=== PATIENT | female | born 1960 | race Caucasian/White ===

== ENCOUNTER 2016-11-27 01:53 | Emergency (ER) | payer OTHER ==
--- NOTE | 2016-11-27 03:48 | ED CLINICAL REPORT ---
Clinical Report - Physicians/Mid Levels [facility] [address] [place] [address] 11/27/2016 1:54 Patient: YUMI FERRARI Time Seen: 02:28. Arrived- By private vehicle. Historian- patient. HISTORY OF PRESENT ILLNESS Chief Complaint: FLANK PAIN. At its maximum, severity described as 6 / 10. When seen in the E.D., severity described as 5 / 10. It is described as "pain" and it is described as located in the right flank. This started yesterday and is still present and worsening. It was gradual in onset. No nausea, vomiting or diarrhea. (feels like a full bladder. Fidgit when severe.). Similar symptoms previously: None. Recent medical care: Not recently seen/assessed. REVIEW OF SYSTEMS No constipation, black stools, fever, headache or sore throat. No chest pain or difficulty breathing. She has had difficulty with urination, and back pain. PAST HISTORY PCP: JOSE Gao Illness: HBP. Medications: Lisinopril Oral 2.5 mg, daily. PARoxetine HCl Oral (Tablet 10 mg) 1 tablet, q day. Pravastatin Sodium Oral. Allergies: Sulfa Antibiotics. SOCIAL HISTORY The patient lives with spouse. ADDITIONAL NOTES The nursing notes have been reviewed. PHYSICAL EXAM Vital Signs: 11/27/2016 04:00 BP: 118/65. HR: 59. RR: 18. O2 saturation: 100%. Pain level now: 0/10. 11/27/2016 02:06 BP: 154/88. HR: 66. RR: 20. O2 saturation: 96%. Temp: 97.7 F. Pain level now: 6/10. Appearance: Alert. Patient in moderate distress. Eyes: Eyes normal inspection. ENT: Pharynx normal. CVS: Heart sounds normal. Respiratory: No respiratory distress. Breath sounds normal. Abdomen: Soft and nontender. Back: Mild CVA tenderness on the right (to moderate). Skin: Skin warm. No rash. Extremities: Extremities exhibit normal ROM. No lower extremity edema. LABS, X-RAYS, AND EKG Abdominal CT: No acute disease. INDICATION: FLANK PAIN TECHNIQUE: Axial CT images were obtained through the abdomen and pelvis without IV contrast. Coronal and sagittal reformations were created. COMPARISON: None. FINDINGS: Mild medial right middle lobe atelectasis. Normal size heart. No hiatal hernia. Gallbladder surgically absent. Heterogeneous hypodensity throughout the liver. No discrete mass. Mildly heterogeneous right renal parenchyma suggests occult cysts. No discrete calcification. No hydronephrosis. The unenhanced appearance of the liver, adrenal glands, kidneys, pancreas and spleen is otherwise normal. The abdominal aorta is normal in its course and caliber. There are no suspicious calcifications, retroperitoneal adenopathy or masses. The stomach, upper bowel loops, and mesentery appears normal. Intact anterior abdominal wall. No free fluid, or inflammation. The unenhanced appearance of the uterus with tubal ligation clips, urinary bladder, pelvic vessels, and pelvic bowel loops is normal. The ovaries are not visible. Appendix is surgically absent. No suspicious calcifications, free fluid, or mass. Intact osseous structures. Disc degeneration at L5-S1. IMPRESSION: 1. No urinary calcification or obstructive uropathy. 2. Hepatic steatosis. 3. Cholecystectomy, appendectomy, tubal ligation. 4. Preliminary report by Dr. Mindy Salazar of [facility] radiology. The study was interpreted by the radiologist. Laboratory Tests: UA-Culture if indicated: (HUGO: 11/27/2016 02:03) ( MsgRcvd 11/27/2016 02:30) Final results Test Result Flag Units (Reference) URINE COLOR YELLOW URINE APPEARANCE CLEAR URINE GLUCOSE NEGATIVE (NEGATIVE) URINE BILIRUBIN NEGATIVE (NEGATIVE) URINE KETONE NEGATIVE (NEGATIVE) URINE SPECIFIC GRAVITY 1.025 (1.010-1.030) URINE PH 6.0 (5.0-8.0) URINE PROTEIN NEGATIVE (NEGATIVE) URINE UROBILINOGEN 0.2 EU/dL (0.2-1.0) URINE NITRITE NEGATIVE (NEGATIVE) URINE BLOOD NEGATIVE (NEGATIVE) URINE LEUK ESTERASE NEGATIVE (NEGATIVE) URINE RBC 0-1 rbc/hpf (0-1) URINE WBC 0-1 wbc/hpf (0-1) URINE EPITHELIAL CELLS 0-1 EPI/hpf (0-5) URINE BACTERIA NONE SEEN (NONE SEEN) URINE COMMENT CULT NOT INDICATED URINE CULTURES ARE SET-UP BASED ON THE FOLLOWING CRITERIA:POSITIVE NITRITEPOSITIVE LEUKOCYTE ESTERASEGREATER THAN 10 WHITE BLOOD CELLSMODERATE (2+) OR GREATER BACTERIA CBC w Diff: (HUGO: 11/27/2016 02:21) ( MsgRcvd 11/27/2016 02:42) Final results Test Result Flag Units (Reference) WHITE BLOOD COUNT 10.6 K/uL (4.5-11.5) RED BLOOD COUNT 4.88 M/uL (4.00-5.20) HEMOGLOBIN 14.3 gm/dL (12.0-16.0) HEMATOCRIT 42.7 % (36.0-46.0) MEAN CELL VOLUME 88 fL (80-100) MEAN CORPUSCULAR HGB 29 pg (26-34) MEAN CORPUSCULAR HGB CONC 33 g/dL (31-37) RED CELL DISTRIBUTION WIDTH 13.6 % (11.6-14.8) PLATELET COUNT 254 K/uL (150-400) NEUTROPHIL % 52.5 % (50-75) LYMPH % 39.3 % (25-40) MONO % 5.9 % (3-14) EOSINOPHIL % 1.5 % (0-4) BASOPHIL % 0.8 % (0-2) CMP: (HUGO: 11/27/2016 02:21) ( MsgRcvd 11/27/2016 02:56) Final results Test Result Flag Units (Reference) GLUCOSE 103 mg/dL (70-110) BUN 17 mg/dL (7-18) CREATININE 0.7 mg/dL (0.6-1.3) Estimated GFR >60 mL/min Estimated GFR- >60 mL/min Note: Persistent reduction over 3 months in eGFR<60 mL/min/1.73 m2 defines CKD. Patients with eGFR values>=60 mL/min/1.73 m2 may also have CKD if evidence ofpersistent proteinuria. Additional information may be foundat www.kidney.org. SODIUM 138 mmol/L (136-145) POTASSIUM 4.8 mmol/L (3.5-5.1) CHLORIDE 105 mmol/L (98-107) CARBON DIOXIDE 24 mmol/L (21-32) CALCIUM 8.9 mg/dL (8.5-10.1) TOTAL PROTEIN 7.7 g/dL (6.4-8.2) ALBUMIN 3.7 g/dL (3.3-5.0) BILIRUBIN, TOTAL 0.4 mg/dL (0.0-1.0) ALKALINE PHOSPHATASE 91 U/L (46-116) AST (SGOT) 52 H U/L (15-37) ALT (SGPT) 55 U/L (12-78) . PROGRESS AND PROCEDURES Course of Care: 03:03 11/27/16. Aorta is normal. Phlebolith vs large stone. Pain is gone following meds. tubal ligation clips but no stones. This is not stone, not aorta, most likely musculoskeletal. No abdominal discomfort to suggest appy. Disposition: Discharged. Condition: stable. CLINICAL IMPRESSION Abdominal pain of unknown cause (RIGHT FLANK). INSTRUCTIONS (IMMEDIATE RECHECK FOR UNCONTROLLED PAIN OR TEMPERATURE OF 100 OR MORE THE CAUSE 0F YOUR PAIN IS NOT CLEAR. NO KIDNEY STONE ON CT. THIS MAY BE MUSCULOSELETAL PAIN OR ANOTHER KIND OF ABDOMINAL PAIN. RECHECK IN 24 HOURS OR SOONER IF NOT BETTER. SEE YOU DR NO LATER THAN 48 HOURS FROM NOW.). Prescription Medications: Oxycodone/APAP 5 mg/325 mg: take 1-2 tablets orally every 4 hours as needed for pain. Dispense fifteen (15). No refill. Follow-up: Follow up with your doctor. Reason for referral: CALL TODAY FOR UROLOGY REFERRAL Understanding of the discharge instructions verbalized by patient and family. (Electronically signed by Fredy Vogt MD 11/27/2016 23:03)
--- NOTE | 2016-11-27 03:49 | ED ORDER SUMMARY ---
..... Patient: YUMI FERRARI OrderSheet [facility] VisitID: [id number] [place] [address] 56y, F Registration Date/Time: 11/27/2016 ORDER SHEET Weight: 87.5 kg (stated) Allergies: Sulfa Antibiotics GENERAL ORDERS: UA-Culture if indicated Urgent (02:16 11/27/2016 DDavis R.N. per protocol) (2:17 DDavis R.N.) CT Abd/Pel wo Cont Urgent (02:34 11/27/2016 Venkata CASTILLO) (Ack 2:41 ALawrence ER Tech1) (2:50 GUnger) CBC w Diff Urgent (02:34 11/27/2016 Venkata CASTILLO) (Ack 2:41 ALawrence ER Tech1) (2:41 DDavis R.N.) CMP Urgent (02:34 11/27/2016 Venkata CASTILLO) (Ack 2:41 ALawrence ER Tech1) (2:41 DDavis R.N.) MEDICATION ORDERS: IV FLUIDS: Zofran IV 4 mg (NOW) (02:34 11/27/2016 Venkata CASTILLO) (Ack 2:51 RCollier R.N.) (2:53 DDavis R.N.) Dilaudid IV 1 mg (NOW) (02:34 11/27/2016 Venkata CASTILLO) (Ack 2:51 RCollier R.N.) (2:53 DDavis R.N.) ORDER SHEET NOTES: [Electronically signed by Kirit Almazan R.N. (04:02 11/27/2016)] [Electronically signed by Fredy Vogt MD (23:03 11/27/2016)] [Electronically locked/signed by Kirit Almazan R.N. (04:02 11/27/2016)]
--- NOTE | 2016-11-27 03:49 | ED ORDER SUMMARY ---
..... Patient: YUMI FERRARI OrderSheet [facility] VisitID: [id number] [place] [address] 56y, F Registration Date/Time: 11/27/2016 ORDER SHEET Weight: 87.5 kg (stated) Allergies: Sulfa Antibiotics GENERAL ORDERS: UA-Culture if indicated Urgent (02:16 11/27/2016 DDavis R.N. per protocol) (2:17 DDavis R.N.) CT Abd/Pel wo Cont Urgent (02:34 11/27/2016 Venkata CASTILLO) (Ack 2:41 ALawrence ER Tech1) (2:50 GUnger) CBC w Diff Urgent (02:34 11/27/2016 Venkata CASTILLO) (Ack 2:41 ALawrence ER Tech1) (2:41 DDavis R.N.) CMP Urgent (02:34 11/27/2016 Venkata CASTILLO) (Ack 2:41 ALawrence ER Tech1) (2:41 DDavis R.N.) MEDICATION ORDERS: IV FLUIDS: Zofran IV 4 mg (NOW) (02:34 11/27/2016 Venkata CASTILLO) (Ack 2:51 RCollier R.N.) (2:53 DDavis R.N.) Dilaudid IV 1 mg (NOW) (02:34 11/27/2016 Venkata CASTILLO) (Ack 2:51 RCollier R.N.) (2:53 DDavis R.N.) ORDER SHEET NOTES: [Electronically signed by Kirit Almazan R.N. (04:02 11/27/2016)] [Electronically signed by Fredy Vogt MD (23:03 11/27/2016)] [Electronically locked/signed by Kirit Almazan R.N. (04:02 11/27/2016)]
--- NOTE | 2016-11-27 03:49 | ED NURSING NOTES ---
Clinical Report - Nurses [facility] [address] [place] [address] 11/27/2016 1:54 Patient: YUMI FERRARI TRIAGE Triage time 02:06. Acuity: LEVEL 3. Chief Complaint: (lower back pain). Alert. TERRIE COMA SCORE: Terrie Coma Scale: 15- eyes open spontaneously (4); best verbal response- oriented x 4 (5); best motor response- obeys commands (6). --02:12 Kirit Almazan R.N. 02:06 11/27/16. BP: 154/88. HR: 66. RR: 20. O2 saturation: 96% on room air. Temp: 97.7 F. Pain level now: 02/16. --02:12 Kirit Almazan R.N. Weight: 87.5 kg stated. Height/Length: 63 inches Per Patient. BMI: 34.2. --02:08 Kirit Almazan R.N. Medications Lisinopril Oral 2.5 mg, daily. PARoxetine HCl Oral (Tablet 10 mg) 1 tablet, q day. Pravastatin Sodium Oral. --02:10 Kirit Almazan R.N. Allergies Sulfa Antibiotics. --02:10 Kirit Almazan R.N. History Arrived by private vehicle. Historian: patient. Accompanied by family. This started yesterday. She has had nausea. SOCIAL HX: Never smoker. Occasional alcohol use. No drug use. Recent travel. SELF HARM ASSESSMENT: A self harm assessment was performed. The patient answered "no" to the question "Have you recently felt down, depressed, or hopeless?", "Have you noticed less interest or pleasure in doing things?", "Do you have thoughts of harming or killing yourself?", "Are you here because you tried to hurt yourself?", "Have you ever tried to hurt yourself before today?" and "Have you recently had thoughts about harming or killing others?". FALL RISK ASSESSMENT: Fall risk assessment completed. No fall risk identified. NUTRITIONAL RISK ASSESSMENT: The nutritional risk assessment revealed no deficiencies. LEARNING NEEDS ASSESSMENT: The learning needs assessment revealed no barriers. SKIN INTEGRITY ASSESSMENT: Skin integrity risk assessment completed. No skin integrity risk identified. --02:12 Kirit Almazan R.N. ( right lower back pain, and lower central abdominal pain starting yesterday.). --02:13 Kirit Almazan R.N. PROBLEMS: Gastroesophageal Reflux Disease. Hypertension. Hypercholesterolemia. Anxiety Reaction. --02:11 Kirit Almazan R.N. ADDITIONAL SURGERIES: Cholecystectomy. Tubal Ligation. --02:11 Kirit Almazan R.N. Appendectomy. --02:11 Kirit Almazan R.N. Right arm fracture with surgical repair. --02:11 Kirit Almazan R.N. Interventions ID and allergy band on patient. To treatment room. --02:12 Kirit Almazan R.N. PHYSICAL ASSESSMENT ( last BM yesterday). GENERAL / NEURO / PSYCH: Alert. Oriented X 4. HEENT: Mucous membranes are pink. RESPIRATORY: Respirations not labored. CVS: Capillary refill less than 2 seconds. GI / : Abdomen soft. SKIN: Skin is warm and dry. --02:13 Kirit Almazan R.N. ( Nausea). --02:13 Kirit Almazan R.N. ( denies vomiting/diarrhea). --02:14 Kirit Almazan R.N. NURSING PROGRESS NOTES Patient gowned. Head of bed elevated. Reassurance given. Two patient identifiers checked. Call light placed in reach. Side rails up x 1. Bed placed in lowest position. Brakes of bed on. Patient ready for evaluation- chart flagged. Patient waiting for evaluation. --02:14 Kirit Almazan R.N. 02:18 11/27/2016 One (1) unsuccessful IV access attempt including the right forearm. Applied bandage and manual pressure. --02:26 Sonia Smith R.N. 02:25 11/27/2016 Site #1 started via IV in the left hand with an 22g angiocath, with aseptic technique and good blood return; one attempt. Blood drawn: rainbow set. Labeled in the presence of the patient and sent to the lab. Saline lock flushed with 10 mL saline. --02:25 Sonia Smith R.N. 02:48 11/27/2016 Zofran (Ondansetron HCl) IVP 4 mg given over 1 minute(s) via site #1. Allergies verified and confirmed 5 rights. IV patency established. --02:53 Kirit Almazan R.N. 02:51 11/27/2016 Dilaudid (HYDROmorphone HCl PF) IVP 1 mg given over 2 minute(s) via site #1. Allergies verified, confirmed 5 rights and sedative warning given to the patient and patient's family. IV patency established. IV site checked: no pain, redness, or swelling. IV flushed thoroughly pre- and post-medication administration. --02:53 Kirit Almazan R.N. DISPOSITION / DISCHARGE 04:01 11/27/2016 Site #1 removed upon discharge. Manual pressure and bandaid applied. --04:01 Kirit Almazan R.N. Departure time: 04:01. Condition at departure: improved and stable. No learning barriers present. Discharge instructions provided and reviewed with the patient and spouse. Reviewed warnings. Reviewed medication(s) side effects, precautions, dosing and course information. Prescription(s) given to the patient. Treatments reviewed. Reviewed referrals for followup. Patient and spouse verbalized understanding. Written instructions provided in Croatian. The patient was discharged home and accompanied by spouse. She left the Emergency Department ambulatory and via private vehicle. Spouse driving. ( patient alert and oriented.). --04:01 Kirit Almazan R.N. 04:00 11/27/16. BP: 118/65. HR: 59. RR: 18 (unlabored). O2 saturation: 100% on room air. Pain level now: 0/10. --04:01 Kirit Almazan R.N. Locked/Released at 11/27/2016 4:02 by Kirit Almazan R.N.
--- NOTE | 2016-11-27 08:20 | DIAGNOSTIC IMAGING REPORT ---
PROCEDURE: CT ABDOMEN/PELVIS W/O CONTRAST INDICATION: FLANK PAIN TECHNIQUE: Axial CT images were obtained through the abdomen and pelvis without IV contrast. Coronal and sagittal reformations were created. COMPARISON: None. FINDINGS: Mild medial right middle lobe atelectasis. Normal size heart. No hiatal hernia. Gallbladder surgically absent. Heterogeneous hypodensity throughout the liver. No discrete mass. Mildly heterogeneous right renal parenchyma suggests occult cysts. No discrete calcification. No hydronephrosis. The unenhanced appearance of the liver, adrenal glands, kidneys, pancreas and spleen is otherwise normal. The abdominal aorta is normal in its course and caliber. There are no suspicious calcifications, retroperitoneal adenopathy or masses. The stomach, upper bowel loops, and mesentery appears normal. Intact anterior abdominal wall. No free fluid, or inflammation. The unenhanced appearance of the uterus with tubal ligation clips, urinary bladder, pelvic vessels, and pelvic bowel loops is normal. The ovaries are not visible. Appendix is surgically absent. No suspicious calcifications, free fluid, or mass. Intact osseous structures. Disc degeneration at L5-S1. IMPRESSION: 1. No urinary calcification or obstructive uropathy. 2. Hepatic steatosis. 3. Cholecystectomy, appendectomy, tubal ligation. 4. Preliminary report by Dr. Mindy Salazar of [facility] radiology. All CT scans at this facility use dose modulation, iterative reconstruction, and/or weight-based dosing when appropriate to reduce radiation dose to as low as reasonably achievable.
--- NOTE | 2016-11-27 23:03 | ED MED RECONCILIATION SUMMARY ---
Patient: YUMI FERRARI Medication Reconciliation Report [facility] VisitID: [id number] [address] [place] [address] 56y, F Registration Date/Time: 11/27/2016 Weight: 87.5 kg Height/Length: 63 in. BMI: 34.2 ALLERGIES: Sulfa Antibiotics The patient's Home Medications are listed below: THE FOLLOWING MEDICATIONS NEED TO BE RECONCILED: Lisinopril Oral 2.5 mg, daily PARoxetine HCl Oral (10 mg) 1 tablet, q day Pravastatin Sodium Oral The source(s) of the original Home Medication information: Not obtained. The following Medications were given to the patient in the Emergency Department: Zofran [IVP] IVP 4 mg, administered: 11/27/2016 2:48:00 AM Dilaudid [IVP] IVP 1 mg, administered: 11/27/2016 2:51:00 AM The following Medications were prescribed to the patient: Oxycodone/APAP 5 mg/325 mg: take 1-2 tablets orally every 4 hours as needed for pain. Dispense fifteen (15). No refill. -- Fredy Vogt MD
--- NOTE | 2016-11-27 23:03 | ED MAR SUMMARY ---
..... Medication Administration Record [facility] [address] [place] [address] Patient: YUMI FERRARI Visit ID: [id number] 56y, F Weight: 87.5 kg Height/Length: 63 in BMI: 34.2 ALLERGIES: Sulfa Antibiotics Given 02:48 11/27/2016 Kirit Almazan R.N. Medication Administered: ZOFRAN [IVP] (ONDANSETRON HCL), Dose: 4 mg IVP over 1 minute(s), Site: #1 left hand. Medication Ordered: Zofran IV 4 mg (NOW). Given 02:51 11/27/2016 Kirit Almazan R.N. Medication Administered: DILAUDID [IVP] (HYDROMORPHONE HCL PF), Dose: 1 mg IVP over 2 minute(s), Site: #1 left hand. Medication Ordered: Dilaudid IV 1 mg (NOW).
--- NOTE | 2016-11-27 23:03 | ED DISCHARGE INSTRUCTIONS ---
Patient: YUMI FERRARI General Instructions [facility] VisitID: [id number] [place] [address] 56y, F Registration Date/Time: 11/27/2016 Abdominal pain of unknown cause (RIGHT FLANK). INSTRUCTIONS (IMMEDIATE RECHECK FOR UNCONTROLLED PAIN OR TEMPERATURE OF 100 OR MORE THE CAUSE 0F YOUR PAIN IS NOT CLEAR. NO KIDNEY STONE ON CT. THIS MAY BE MUSCULOSELETAL PAIN OR ANOTHER KIND OF ABDOMINAL PAIN. RECHECK IN 24 HOURS OR SOONER IF NOT BETTER. SEE YOU DR NO LATER THAN 48 HOURS FROM NOW.). Prescription Medications: Oxycodone/APAP 5 mg/325 mg: take 1-2 tablets orally every 4 hours as needed for pain. Dispense fifteen (15). No refill. Follow-up: Follow up with your doctor. Reason for referral: CALL TODAY FOR UROLOGY REFERRAL Understanding of the discharge instructions verbalized by patient and family. ADDITIONAL INFORMATION Abdominal Pain, Unknown Cause (Female) The exact cause of your abdominal (stomach) pain is not certain. This does not mean that this is something to worry about, or the right tests were not done. Everyone likes to know the exact cause of the problem, but sometimes with abdominal pain, there is no clear-cut cause, and this could be a good thing. The good news is that your symptoms can be treated, and you will feel better. Your condition does not seem serious now; however, sometimes the signs of a serious problem may take more time to appear. For this reason,it is important for you to watch for any new symptoms, problems,or worsening of your condition. Over the next few days, the abdominal pain may come and go, or be continuous. Other common symptoms can include nausea and vomiting. Sometimes it can be difficult to tell if you feel nauseous, you may just feel bad and not associate that feeling with nausea. Constipation, diarrhea, and a fever may go along with the pain. The pain may continue even if treated correctly over the following days. Depending on how things go, sometimes the cause can become clear and may require further or different treatment. Additional evaluations, medications, or tests may be needed. Home care Your health care provider may prescribe medications for pain, symptoms, or an infection. Follow the health care provider's instructions for taking these medications. General care Rest until your next exam. No strenuous activities. Try to find positions that ease discomfort. A small pillow placed on the abdomen may help relieve pain. Something warm on your abdomen (such as a heating pad) may help, but be careful not to burn yourself. Diet Do not force yourself to eat, especially if having cramps, vomiting, or diarrhea. Water is important so you do not get dehydrated. Soup may also be good. Sports drinks may also help, especially if they are not too acidic. Make sure you don't drink sugary drinks as this can make things worse. Take liquids in small amounts. Do not guzzle them. Caffeine sometimes makes the pain and cramping worse. Avoid dairy products if you have vomiting or diarrhea. Don't eat large amounts at a time. Wait a few minutes between bites. Eat a diet low in fiber (called a low-residue diet). Foods allowed include refined breads, white rice, fruit and vegetable juices without pulp, tender meats. These foods will pass more easily through the intestine. Avoid whole-grain foods, whole fruits and vegetables, meats, seeds and nuts, fried or fatty foods, dairy, alcohol and spicy foods until your symptoms go away. Follow-up care Follow up with your health care provider as instructed, or if your pain does not begin to improve in the next 24 hours. When to seek medical care Seek prompt medical care if any of the following occur: Pain gets worse or moves to the right lower abdomen New or worsening vomiting or diarrhea Swelling of the abdomen Unable to pass stool for more than three days Fever of 100.4F (38C) or higher, or as directed by your healthcare provider. Blood in vomit or bowel movements (dark red or black color) Jaundice (yellow color of eyes and skin) Weakness, dizziness Chest, arm, back, neck or jaw pain Unexpected vaginal bleeding or missed period Call 911 Call emergency services if any of the following occur: Trouble breathing Confusion Fainting or loss of consciousness Rapid heart rate Seizure Oxycodone Hydrochloride, Acetaminophen Oral tablet What is this medicine? ACETAMINOPHEN; OXYCODONE (a set a MERCED dany fen; ox i KOE done) is a pain reliever. It is used to treat mild to moderate pain. How should I use this medicine? Take this medicine by mouth with a full glass of water. Follow the directions on the prescription label. Take your medicine at regular intervals. Do not take your medicine more often than directed. Talk to your cable repairer regarding the use of this medicine in children. Special care may be needed. Patients over 65 years old may have a stronger reaction and need a smaller dose. What side effects may I notice from receiving this medicine? Side effects that you should report to your doctor or health respiratory care practitioner as soon as possible: allergic reactions like skin rash, itching or hives, swelling of the face, lips, or tongue breathing difficulties, wheezing confusion light headedness or fainting spells severe stomach pain yellowing of the skin or the whites of the eyes Side effects that usually do not require medical attention (report to your doctor or health respiratory care practitioner if they continue or are bothersome): dizziness drowsiness nausea vomiting What may interact with this medicine? alcohol antihistamines barbiturates like amobarbital, butalbital, butabarbital, methohexital, pentobarbital, phenobarbital, thiopental, and secobarbital benztropine drugs for bladder problems like solifenacin, trospium, oxybutynin, tolterodine, hyoscyamine, and methscopolamine drugs for breathing problems like ipratropium and tiotropium drugs for certain stomach or intestine problems like propantheline, homatropine methylbromide, glycopyrrolate, atropine, belladonna, and dicyclomine general anesthetics like etomidate, ketamine, nitrous oxide, propofol, desflurane, enflurane, halothane, isoflurane, and sevoflurane medicines for depression, anxiety, or psychotic disturbances medicines for sleep muscle relaxants naltrexone narcotic medicines (opiates) for pain phenothiazines like perphenazine, thioridazine, chlorpromazine, mesoridazine, fluphenazine, prochlorperazine, promazine, and trifluoperazine scopolamine tramadol trihexyphenidyl What if I miss a dose? If you miss a dose, take it as soon as you can. If it is almost time for your next dose, take only that dose. Do not take double or extra doses. Where should I keep my medicine? Keep out of the reach of children. This medicine can be abused. Keep your medicine in a safe place to protect it from theft. Do not share this medicine with anyone. Selling or giving away this medicine is dangerous and against the law. Store at room temperature between 20 and 25 degrees C (68 and 77 degrees F). Keep container tightly closed. Protect from light. This medicine may cause accidental overdose and if it is taken by other adults, children, or pets. Flush any unused medicine down the toilet to reduce the chance of harm. Do not use the medicine after the expiration date. What should I tell my health care provider before I take this medicine? They need to know if you have any of these conditions: brain tumor Crohn's disease, inflammatory bowel disease, or ulcerative colitis drink more than 3 alcohol containing drinks per day drug abuse or addiction head injury heart or circulation problems kidney disease or problems going to the bathroom liver disease lung disease, asthma, or breathing problems an unusual or allergic reaction to acetaminophen, oxycodone, other opioid analgesics, other medicines, foods, dyes, or preservatives or trying to get breast-feeding What should I watch for while using this medicine? Tell your doctor or health respiratory care practitioner if your pain does not go away, if it gets worse, or if you have new or a different type of pain. You may develop tolerance to the medicine. Tolerance means that you will need a higher dose of the medication for pain relief. Tolerance is normal and is expected if you take this medicine for a long time. Do not suddenly stop taking your medicine because you may develop a severe reaction. Your body becomes used to the medicine. This does NOT mean you are addicted. Addiction is a behavior related to getting and using a drug for a non-medical reason. If you have pain, you have a medical reason to take pain medicine. Your doctor will tell you how much medicine to take. If your doctor wants you to stop the medicine, the dose will be slowly lowered over time to avoid any side effects. You may get drowsy or dizzy. Do not drive, use machinery, or do anything that needs mental alertness until you know how this medicine affects you. Do not stand or sit up quickly, especially if you are an older patient. This reduces the risk of dizzy or fainting spells. Alcohol may interfere with the effect of this medicine. Avoid alcoholic drinks. There are different types of narcotic medicines (opiates) for pain. If you take more than one type at the same time, you may have more side effects. Give your health care provider a list of all medicines you use. Your doctor will tell you how much medicine to take. Do not take more medicine than directed. Call emergency for help if you have problems breathing. The medicine will cause constipation. Try to have a bowel movement at least every 2 to 3 days. If you do not have a bowel movement for 3 days, call your doctor or health respiratory care practitioner. Do not take Tylenol (acetaminophen) or medicines that have acetaminophen with this medicine. Too much acetaminophen can be very dangerous. Many nonprescription medicines contain acetaminophen. Always read the labels carefully to avoid taking more acetaminophen. You have been given the following additional information: Abdominal Pain, Unknown Cause, (Female) Oxycodone Hydrochloride, Acetaminophen Oral tablet (Electronically signed by Fredy Vogt MD 11/27/2016 23:03)
--- NOTE | 2016-11-27 23:03 | ED MAR SUMMARY ---
..... Medication Administration Record [facility] [address] [place] [address] Patient: YUMI FERRARI Visit ID: [id number] 56y, F Weight: 87.5 kg Height/Length: 63 in BMI: 34.2 ALLERGIES: Sulfa Antibiotics Given 02:48 11/27/2016 Kirit Almazan R.N. Medication Administered: ZOFRAN [IVP] (ONDANSETRON HCL), Dose: 4 mg IVP over 1 minute(s), Site: #1 left hand. Medication Ordered: Zofran IV 4 mg (NOW). Given 02:51 11/27/2016 Kirit Almazan R.N. Medication Administered: DILAUDID [IVP] (HYDROMORPHONE HCL PF), Dose: 1 mg IVP over 2 minute(s), Site: #1 left hand. Medication Ordered: Dilaudid IV 1 mg (NOW).
--- NOTE | 2016-11-27 23:03 | ED MED RECONCILIATION SUMMARY ---
Patient: YUMI FERRARI Medication Reconciliation Report [facility] VisitID: [id number] [address] [place] [address] 56y, F Registration Date/Time: 11/27/2016 Weight: 87.5 kg Height/Length: 63 in. BMI: 34.2 ALLERGIES: Sulfa Antibiotics The patient's Home Medications are listed below: THE FOLLOWING MEDICATIONS NEED TO BE RECONCILED: Lisinopril Oral 2.5 mg, daily PARoxetine HCl Oral (10 mg) 1 tablet, q day Pravastatin Sodium Oral The source(s) of the original Home Medication information: Not obtained. The following Medications were given to the patient in the Emergency Department: Zofran [IVP] IVP 4 mg, administered: 11/27/2016 2:48:00 AM Dilaudid [IVP] IVP 1 mg, administered: 11/27/2016 2:51:00 AM The following Medications were prescribed to the patient: Oxycodone/APAP 5 mg/325 mg: take 1-2 tablets orally every 4 hours as needed for pain. Dispense fifteen (15). No refill. -- Fredy Vogt MD
== END 2016-11-27 04:01 | disposition home or self-care (01) ==
LOC: ED SRH 01:53
DX: R10.31 Right lower quadrant pain (principal); I10 Essential (primary) hypertension; Z79.899 Other long term (current) drug therapy; Z88.2 Allergy status to sulfonamides
CPT/HCPCS: 90004; 90100; 95059